=== PATIENT | male | born 1995 | race Caucasian/White ===

== ENCOUNTER 2019-07-08 22:37 | Emergency (ER) | payer OTHER ==
[~2019-07-08] VITALS: Ht 182.9 cm; Wt 65.8 kg
[2019-07-08 23:09] LABS: INFLUENZA A ANTIGEN Negative (Negative); INFLUENZA B ANTIGEN Negative (Negative)
[2019-07-08 23:56] VITALS: BP 106/60
== END 2019-07-08 23:56 | disposition home or self-care (01) ==
LOC: M.ERS 22:37
PROVIDERS: Physician Assistant
DX: B34.9 Viral infection, unspecified (principal); Z88.0 Allergy status to penicillin